=== PATIENT | male | born 1970 | race Caucasian/White ===

== ENCOUNTER 2018-11-16 13:49 | Emergency (ER) | payer BC, MEDICAID ==
[2018-11-16 13:56] VITALS: BP 116/74
[2018-11-16] MEDS ORDERED: KETOROLAC 60 MG/2 ML VIAL IM STA (15:34)
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
[2018-11-16] MEDS ORDERED: DEXAMETHASONE 10 MG/ML VIAL PO STA (15:35)
[2018-11-16] MEDS ORDERED: CHERRY SYRUP 10 ML UDC PO ONE (15:35)
--- NOTE | 2018-11-16 16:22 | XRAY Report ---
Reason: left lower lateral rib contusion Procedure Date: 11/16/2018 Accession Number: [id number] / [id number] Procedure: XR - Ribs w/PA Chest LT CPT Code: FULL RESULT: EXAM: LEFT RIB RADIOGRAPHY EXAM DATE: 11/16/2018 04:05 PM. CLINICAL HISTORY: Left-sided chest pain after a twisting injury. COMPARISON: None. TECHNIQUE: 1 view of the chest and 2 views of the ribs. FINDINGS: Bones: A marker was placed in the area of concern and this corresponds to the anterior aspect of the left ninth rib. Normal. No fracture or bone lesion. Lungs: No focal opacities. No pneumothorax. No pleural effusions. Mediastinum: Heart and mediastinal contours are unremarkable. Other: None. IMPRESSION: Normal chest and rib radiography. RADIA
== END 2018-11-16 17:10 | disposition home or self-care (01) ==
LOC: ED 13:49
DX: S20.212A Contusion of left front wall of thorax, initial encounter (principal); X50.9XXA Other and unspecified overexertion or strenuous movements or postures, initial encounter; Y93.89 Activity, other specified; Z59.0 Homelessness
CPT/HCPCS: 71101; 96372; 99283; 99284; A9270

== ENCOUNTER 2019-04-15 23:38 | Outpatient (CLI) | payer MEDICAID | END 2019-04-15 23:39 | disposition short-term general hospital (02) | LOC: EMS 23:38 | PROVIDERS: ATTEND Surgery | DX: S81.832A Puncture wound without foreign body, left lower leg, initial encounter (principal); W32.0XXA Accidental handgun discharge, initial encounter; Y92.818 Other transport vehicle as the place of occurrence of the external cause | CPT/HCPCS: A0425; A0427; A0999 ==

== ENCOUNTER 2019-05-05 19:33 | Emergency (ER) | payer MEDICAID ==
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
[2019-05-05] MEDS ORDERED: ENOXAPARIN 30 MG/0.3 ML SYRINGE SUBQ STA (22:04)
[2019-05-05] MEDS ORDERED: GABAPENTIN 100 MG CAPSULE PO STA (22:05)
[2019-05-05] MEDS ORDERED: oxyCODONE 5 MG TABLET PO STA (22:05)
[2019-05-05] MEDS ORDERED: oxyCODONE/ACET 5/325 Prepack 4 PO STA (22:05)
[2019-05-05] MEDS ORDERED: ACETAMINOPHEN 500 MG TABLET PO STA (22:05)
[2019-05-05] MEDS ORDERED: methocarbamoL 500 MG TABLET PO STA (22:06)
[2019-05-05 22:29] VITALS: BP 132/83
== END 2019-05-05 22:35 | disposition home or self-care (01) ==
LOC: ED 19:33
DX: G89.18 Other acute postprocedural pain (principal); M79.662 Pain in left lower leg
CPT/HCPCS: 96372; 99283; 99284; A9270; J1650

== ENCOUNTER 2019-05-07 10:39 | Emergency (ER) | payer MEDICAID ==
[2019-05-07] MEDS ORDERED: KETOROLAC 60 MG/2 ML VIAL IM STA (11:22)
[2019-05-07] MEDS ORDERED: ONDANSETRON ODT 4 MG TABLET TL STA (11:22)
[2019-05-07] MEDS ORDERED: HYDROmorphone 1 MG/ML SYRINGE IM STA (11:22)
[2019-05-07] MEDS ORDERED: CHERRY SYRUP 10 ML UDC PO ONE (11:23)
[2019-05-07] MEDS ORDERED: DEXAMETHASONE 10 MG/ML VIAL PO STA (11:23)
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
[2019-05-07 18:24] LABS: BASOPHILS % (AUTO) 0.4 %; EOSINOPHILS # (AUTO) 0.1 10^3/uL (0.0-0.7); EOSINOPHILS % (AUTO) 0.7 %; HGB - HEMOGLOBIN 10.7 g/dL (14.0-18.0); LYMPHOCYTES # (AUTO) 0.3 10^3/uL (1.5-3.5); LYMPHOCYTES % (AUTO) 3.9 %; MEAN CORPUSCULAR HGB CONC 32.5 g/dL (32.0-36.0); MEAN CORPUSCULAR VOLUME 101.5 fL (80.0-94.0); MEAN PLATELET VOLUME 8.5 fL (7.4-11.4); MONOCYTES # (AUTO) 0.3 10^3/uL (0.0-1.0); MONOCYTES % (AUTO) 3.6 %; NEUTROPHILS # (AUTO) 6.3 10^3/uL (1.5-6.6); NEUTROPHILS % (AUTO) 91.1 %; PLT - PLATELET COUNT 491 10^3/uL (130-450); RED BLOOD COUNT 3.24 10^6/uL (4.70-6.10); RED CELL DISTRIBUTION WIDTH 14.7 % (12.0-15.0); WHITE BLOOD COUNT 6.9 x10^3/uL (4.8-10.8)
[2019-05-07 18:37] LABS: ACETAMINOPHEN < 10 ug/mL (10-30); ALBUMIN 3.8 g/dL (3.2-5.5); ALBUMIN/GLOBULIN RATIO 1.5 (1.0-2.2); ALKALINE PHOSPHATASE 69 IU/L (42-121); ALT ALANINE AMINOTRANSFERASE 37 IU/L (10-60); AST ASPARTATE AMINOTRANSFERASE 22 IU/L (10-42); BILIRUBIN,TOTAL 0.6 mg/dL (0.2-1.0); BUN - BLOOD UREA NITROGEN 19 mg/dL (6-20); CALCIUM 9.1 mg/dL (8.5-10.3); CARBON DIOXIDE - CO2 28 mmol/L (21-32); CHLORIDE 101 mmol/L (101-111); CREATININE 0.9 mg/dL (0.6-1.2); GFR - MDRD 89 (>89); GLUCOSE 170 mg/dL (70-100); LIPASE 77 U/L (22-51); SALICYLATE < 6.0 mg/dL; SODIUM 137 mmol/L (135-145); TOTAL PROTEIN 6.4 g/dL (6.7-8.2)
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
[2019-05-07 23:06] LABS: MUDS CUTOFF CONCENTRATIONS CUTOFF CONC BELOW:
[2019-05-07 23:08] LABS: BILIRUBIN,URINE NEGATIVE (NEGATIVE); CLARITY,URINE CLEAR (CLEAR); GLUCOSE, URINE (UA) NEGATIVE (NEGATIVE); KETONES,URINE (UA) NEGATIVE (NEGATIVE); LEUKOCYTE ESTERASE, URINE NEGATIVE (NEGATIVE); NITRITE,URINE NEGATIVE (NEGATIVE); OCCULT BLOOD,URINE NEGATIVE (NEGATIVE); PROTEIN,URINE NEGATIVE (NEGATIVE); UROBILINOGEN,URINE 0.2 (NORMAL) E.U./dL (NORMAL)
[2019-05-07 23:25] LABS: AMPHETAMINE SCREEN,URINE POSITIVE (NEGATIVE); BENZODIAZEPINES SCREEN, URINE NEGATIVE (NEGATIVE); COCAINE SCREEN URINE NEGATIVE (NEGATIVE); METHADONE SCREEN, URINE NEGATIVE (NEGATIVE); METHAMPHETAMINES SCREEN, URINE NEGATIVE (NEGATIVE); OPIATE SCREEN, URINE NEGATIVE (NEGATIVE); OXYCODONE SCREEN, URINE NEGATIVE (NEGATIVE); PROPOXYPHENE SCREEN, URINE NEGATIVE (NEGATIVE); TRICYCLIC ANTIDEPRESSANT,URINE NEGATIVE (NEGATIVE)
[2019-05-07] MEDS ORDERED: HYDROcod/ACETAM 5/325 MG TABLET PO STA (23:54)
[2019-05-08] MEDS ORDERED: oxyCODONE 5 MG TABLET PO STA (00:03)
[2019-05-08] MEDS ORDERED: HYDROmorphone 1 MG/ML SYRINGE IM STA (02:04)
[2019-05-08] MEDS ORDERED: KETOROLAC 60 MG/2 ML VIAL IM STA (02:04)
[2019-05-08 06:20] VITALS: BP 103/64
== END 2019-05-08 06:19 | disposition home or self-care (01) ==
LOC: ED 10:39
DX: G89.18 Other acute postprocedural pain (principal); M79.662 Pain in left lower leg; R20.0 Anesthesia of skin; Z98.890 Other specified postprocedural states; F39 Unspecified mood [affective] disorder
CPT/HCPCS: 36415; 80053; 80306; 80307; 80320; 80329; 81003; 83690; 84443; 85025; 93005; 96372; 96374; 99284; A9270; G0426; J1170; Q0162; 81001; 87086

== ENCOUNTER 2019-05-23 23:47 | Emergency (ER) | payer MEDICAID ==
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
[2019-05-24 00:43] LABS: BASOPHILS # (AUTO) 0.1 10^3/uL (0.0-0.1); BASOPHILS % (AUTO) 0.6 %; EOSINOPHILS # (AUTO) 0.3 10^3/uL (0.0-0.7); HGB - HEMOGLOBIN 12.1 g/dL (14.0-18.0); LYMPHOCYTES # (AUTO) 1.9 10^3/uL (1.5-3.5); LYMPHOCYTES % (AUTO) 21.7 %; MEAN CORPUSCULAR HEMOGLOBIN 32.9 pg (27.0-31.0); MEAN CORPUSCULAR HGB CONC 32.4 g/dL (32.0-36.0); MEAN CORPUSCULAR VOLUME 101.4 fL (80.0-94.0); MEAN PLATELET VOLUME 9.1 fL (7.4-11.4); MONOCYTES # (AUTO) 0.7 10^3/uL (0.0-1.0); MONOCYTES % (AUTO) 8.2 %; NEUTROPHILS # (AUTO) 5.8 10^3/uL (1.5-6.6); NEUTROPHILS % (AUTO) 66.2 %; PLT - PLATELET COUNT 233 10^3/uL (130-450); RED BLOOD COUNT 3.68 10^6/uL (4.70-6.10); RED CELL DISTRIBUTION WIDTH 13.2 % (12.0-15.0); WHITE BLOOD COUNT 8.7 x10^3/uL (4.8-10.8)
[2019-05-24 00:47] LABS: INR 1.1 (0.8-1.2); PT - PROTHROMBIN TIME 12.8 secs (9.9-12.6)
[2019-05-24 00:59] LABS: ALBUMIN 4.1 g/dL (3.2-5.5); ALBUMIN/GLOBULIN RATIO 1.7 (1.0-2.2); ALKALINE PHOSPHATASE 72 IU/L (42-121); ALT ALANINE AMINOTRANSFERASE 29 IU/L (10-60); AST ASPARTATE AMINOTRANSFERASE 17 IU/L (10-42); BILIRUBIN,TOTAL 0.4 mg/dL (0.2-1.0); BUN - BLOOD UREA NITROGEN 24 mg/dL (6-20); CALCIUM 8.6 mg/dL (8.5-10.3); CARBON DIOXIDE - CO2 26 mmol/L (21-32); CHLORIDE 102 mmol/L (101-111); GLUCOSE 112 mg/dL (70-100); LIPASE 28 U/L (22-51); SODIUM 136 mmol/L (135-145); TOTAL PROTEIN 6.5 g/dL (6.7-8.2)
[2019-05-24 01:01] LABS: CRP - C-REACTIVE PROTEIN < 1.0 mg/dL (0-1.0)
--- NOTE | 2019-05-24 02:24 | Ultrasound Report ---
Reason: Swelling, redness, assess for DVT please Procedure Date: 05/24/2019 Accession Number: [id number] / [id number] Procedure: US - Duplex Ext Veins Left CPT Code: Final Report FULL RESULT: EXAM: LEFT LOWER EXTREMITY VENOUS ULTRASOUND EXAM DATE: 05/24/2019 01:30 AM. CLINICAL HISTORY: Swelling, redness, assess for DVT please. COMPARISON: None. TECHNIQUE: Real-time sonographic vascular imaging was performed by the bag printer through the lower extremity utilizing both color-flow and Doppler spectral analysis. Multiple security representative static images were saved for review. FINDINGS: Common Femoral Vein (CFV): Normal. CFV-GSV Junction: Normal. Profunda Femoral Vein (PFV): Normal. Femoral Vein (FV) Prox: Normal. Femoral Vein (FV) Mid: Normal. Femoral Vein (FV) Dist: Normal. Popliteal Vein: Normal. Posterior Tibial Veins: Normal. Peroneal Veins: Normal. Contralateral Side CFV: Normal. Other: Multilobulated cystic structure in the popliteal fossa and calf measuring 5.1 cm in greatest dimension. IMPRESSION: No evidence for deep venous thrombosis. Cystic structure at the posterior knee and calf which may reflect a popliteal cyst. A contrast-enhanced CT of the lower extremity may be considered if there is concern for abscess formation. RADIA
--- NOTE | 2019-05-24 03:07 | XRAY Report ---
Reason: increased swelling, pain Procedure Date: 05/24/2019 Accession Number: [id number] / [id number] Procedure: XR - Foot 3 View LT CPT Code: Final Report FULL RESULT: EXAM: LEFT FOOT RADIOGRAPHY EXAM DATE: 05/24/2019 02:52 AM. CLINICAL HISTORY: Increased swelling, pain. COMPARISON: None. TECHNIQUE: 3 views. FINDINGS: Bones: Normal. No fractures or bone lesions. Partial visualization of fixation hardware in the distal tibia. Joints: Normal. No subluxations. Soft Tissues: Diffuse soft tissue swelling along the dorsum of the foot. IMPRESSION: Soft tissue swelling. No radiopaque foreign body, bone lesion, or soft tissue gas. RADIA
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
[2019-05-24] MEDS ORDERED: oxyCODONE 5 MG TABLET PO STA (03:20)
[2019-05-24] MEDS ORDERED: cephALEXin 250 MG CAPSULE PO STA (03:20)
[2019-05-24] MEDS ORDERED: LIDOCAINE JELLY 2% 5 ML TUBE TOP STA (04:37)
[2019-05-24] MEDS ORDERED: LIDOCAINE-EPINEPH-TETRACAINE 3 ML SYRINGE TOP ONE (04:41)
[2019-05-24 04:49] VITALS: BP 117/72
[2019-05-24] MEDS ORDERED: LIDOCAINE-EPINEPH-TETRACAINE 3 ML SYRINGE TOP STA (04:50)
[2019-05-24] MEDS ORDERED: IBUPROFEN 600 MG TABLET PO STA (05:34)
== END 2019-05-24 05:40 | disposition home or self-care (01) ==
LOC: ED 23:47
DX: M79.672 Pain in left foot (principal); M79.89 Other specified soft tissue disorders; S81.802D Unspecified open wound, left lower leg, subsequent encounter; Z48.02 Encounter for removal of sutures
CPT/HCPCS: 36415; 73590; 73630; 80053; 83605; 83690; 85025; 85610; 86140; 93971; 99284; A9270

== ENCOUNTER 2019-06-07 12:36 | Emergency (ER) | payer MEDICAID ==
[2019-06-07 12:55] VITALS: BP 129/90
[2019-06-07] MEDS ORDERED: KETOROLAC 60 MG/2 ML VIAL IM STA (13:05)
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
== END 2019-06-07 13:45 | disposition home or self-care (01) ==
LOC: ED 12:36
DX: G89.18 Other acute postprocedural pain (principal); M79.662 Pain in left lower leg
CPT/HCPCS: 96372; 99283